=== PATIENT | male | born 1945 | race Caucasian/White ===

== ENCOUNTER 2017-11-04 03:13 | Inpatient (IN) | payer MEDICARE, BC ==
[~2017-11-04 03:13] MED LIST: DOC100 PO; HYDR RC; METO50TA19 PO; OLME1TAB73 PO; SIMV-44 PO; VALS1TAB80 PO; [UNRECOGNIZED DRUG - CODE] RC
--- NOTE | 2017-11-04 03:30 | ER Report ---
History and Physical Time Seen By MD: 03:29 Hx. of Stated Complaint: MID ABDO PAIN SEV HOURS (MICHAEL VILLALOBOS MD) Time Seen By MD: 08:03 (SANDY MURPHY DO) HPI/ROS CHIEF COMPLAINT: epigastric pain HISTORY OF PRESENT ILLNESS: This is a 72 year old male. He has been having some epigastric area pain off and on for several months now. Most of the time it is okay. He has more pain tonight than usual. He has noted that when the pain is present, antacids can sometimes help. He denies anything that makes it worse. He drinks 3 beers a night. He eats a lot of spicy foods, which have never bothered him. No history of known problems such as pancreatitis, gall bladder problems, ulcers. No cough or fever or shortness of breath. No chest pain. Normal bowels and no trouble with urination. No vomiting. (MICHAEL VILLALOBOS MD) HPI/ROS Please see Dr. Villalobos note (SANDY MURPHY DO) Allergies: Coded Allergies: No Known Drug Allergies (Verified , 11/04/17) Home Meds Active Scripts Olmesartan Med/Amlodipine/Hctz (TRIBENZOR 40-10-25 MG TABLET) 1 Each Tablet, 1 EACH PO DAILY, #90 TAB 4 Refills Prov:LATOYA PEREZ APRN-C 04/01/17 Metoprolol Succinate (METOPROLOL SUCCINATE) 50 Mg Tab.er.24h, 1 TAB PO QDAY, # 90 TAB 4 Refills Prov:LATOYA PEREZ APRN-C 04/01/17 Reported Medications Glucosa Leon 2KCL/Chondroitin Leon (GLUCOSAMINE & CHONDROITIN CAP) 1 Each Capsule, 1 EACH PO BID, CAPSULE 11/04/17 Cinnamon Bark (CINNAMON) 500 Mg Capsule, 500 MG PO QDAY, CAPSULE 11/04/17 Past Medical/Surgical History Hypertension, headaches, hemorrhoids, blind right eye, sure injury to right shoulder and right knees, and right eye surgery when he was a child (MICHAEL VILLALOBOS MD) Reviewed Nurses Notes: Yes (MICHAEL VILLALOBOS MD) Hx Smoking: No Smoking Status: Never Smoker Hx Substance Use Disorder: No Hx Alcohol Use: Yes (3 OR SO BEERS PER NIGHT) (MICHAEL VILLALOBOS MD) Constitutional Vital Sign - Last 24 Hours 11/04/17 11/04/17 11/04/17 11/04/17 03:16 03:21 03:28 03:30 Temp 98.0 Pulse 78 ??? Resp 16 B/P (MAP) 132/71 132/71 (91) 128/77 (94) Pulse Ox 93 96 O2 Delivery Room Air 11/04/17 11/04/17 11/04/17 11/04/17 03:43 03:58 04:13 04:28 Pulse ? 77 ??? Pulse Ox 95 92 11/04/17 11/04/17 11/04/17 11/04/17 04:43 04:48 05:03 05:18 Pulse ? 11/04/17 11/04/17 11/04/17 11/04/17 05:21 05:24 05:30 05:33 Pulse ??? B/P (MAP) 139/77 (97) 132/75 (94) 131/73 (92) 11/04/17 11/04/17 11/04/17 11/04/17 05:48 06:00 06:03 06:18 Pulse ? B/P (MAP) 116/64 (81) 11/04/17 11/04/17 11/04/17 11/04/17 06:30 06:33 07:00 07:30 Pulse ??? B/P (MAP) 120/68 (85) 108/71 (83) 114/72 (86) (SANDY MURPHY DO) Physical Exam General Appearance: The patient is alert. No acute distress ENT: Mucous membranes are moist. Respiratory: Lungs are clear to auscultation. Cardiovascular: Regular rate and rhythm. No murmurs, gallops or rubs. Gastrointestinal: Abdomen is soft and has some tenderness in the epigastric area. Nondistended. No rebound or guarding. Normal active bowel sounds. No costovertebral angle tenderness with percussion. Neurological: Alert and oriented x3. Skin: Warm and dry. No rashes. DIFFERENTIAL DIAGNOSIS: After history and physical exam, differential diagnosis was considered for epigastric pain including but not limited to biliary colic, cholecystitis, peptic ulcer disease, pancreatitis, and gastroenteritis. (MICHAEL VILLALOBOS MD) Physical Exam Please see Dr. Villalobos's note (SANDY MURPHY DO) Medical Decision Making Data Points Result Diagram: 11/04/17 0348 11/04/17 0348 Laboratory Hematology Test 11/04/17 03:48 Red Blood Count 4.17 M/uL (4.00-5.60) Mean Corpuscular Volume 92.9 fL (80.0-96.0) Mean Corpuscular Hemoglobin 32.8 pg (26.0-33.0) Mean Corpuscular Hemoglobin Concent 35.3 g/dL (32.0-36.0) Red Cell Distribution Width 13.2 % (11.5-14.5) Mean Platelet Volume 8.4 fL (7.2-11.1) Neutrophils (%) (Auto) 76.1 % (39.4-72.5) Lymphocytes (%) (Auto) 13.1 % (17.6-49.6) Monocytes (%) (Auto) 9.8 % (4.1-12.4) Eosinophils (%) (Auto) 0.7 % (0.4-6.7) Basophils (%) (Auto) 0.3 % (0.3-1.4) Nucleated RBC Relative Count (auto) 0.0 /100WBC Neutrophils # (Auto) 7.6 K/uL (2.0-7.4) Lymphocytes # (Auto) 1.3 K/uL (1.3-3.6) Monocytes # (Auto) 1.0 K/uL (0.3-1.0) Eosinophils # (Auto) 0.1 K/uL (0.0-0.5) Basophils # (Auto) 0.0 K/uL (0.0-0.1) Nucleated RBC Absolute Count (auto) 0.00 K/uL Sodium Level 139 mmol/L (137-145) Potassium Level 3.4 mmol/L (3.5-5.0) Chloride Level 100 mmol/L (98-107) Carbon Dioxide Level 26 mmol/L (22-30) Blood Urea Nitrogen 20 mg/dl (9-21) Creatinine 1.20 mg/dl (0.66-1.25) Glomerular Filtration Rate Calc 59.9 Random Glucose 150 mg/dl (75-110) Calcium Level 9.0 mg/dl (8.4-10.2) Total Bilirubin 0.6 mg/dl (0.2-1.3) Aspartate Amino Transf (AST/SGOT) 363 U/L (0-35) Alanine Aminotransferase (ALT/SGPT) 179 U/L (0-56) Alkaline Phosphatase 165 U/L (0-126) Total Protein 7.4 g/dl (6.3-8.2) Albumin 4.3 g/dl (3.5-5.0) Amylase Level 292 U/L (0-110) Lipase 1806 U/L (23-300) Helicobacter pylori IgG Antibody Positive (NEGATIVE) Chemistry Test 11/04/17 03:48 White Blood Count 10.0 k/uL (4.5-11.0) Red Blood Count 4.17 M/uL (4.00-5.60) Hemoglobin 13.7 g/dL (14.0-18.0) Hematocrit 38.8 % (42.0-52.0) Mean Corpuscular Volume 92.9 fL (80.0-96.0) Mean Corpuscular Hemoglobin 32.8 pg (26.0-33.0) Mean Corpuscular Hemoglobin Concent 35.3 g/dL (32.0-36.0) Red Cell Distribution Width 13.2 % (11.5-14.5) Platelet Count 290 K/uL (150-450) Mean Platelet Volume 8.4 fL (7.2-11.1) Neutrophils (%) (Auto) 76.1 % (39.4-72.5) Lymphocytes (%) (Auto) 13.1 % (17.6-49.6) Monocytes (%) (Auto) 9.8 % (4.1-12.4) Eosinophils (%) (Auto) 0.7 % (0.4-6.7) Basophils (%) (Auto) 0.3 % (0.3-1.4) Nucleated RBC Relative Count (auto) 0.0 /100WBC Neutrophils # (Auto) 7.6 K/uL (2.0-7.4) Lymphocytes # (Auto) 1.3 K/uL (1.3-3.6) Monocytes # (Auto) 1.0 K/uL (0.3-1.0) Eosinophils # (Auto) 0.1 K/uL (0.0-0.5) Basophils # (Auto) 0.0 K/uL (0.0-0.1) Nucleated RBC Absolute Count (auto) 0.00 K/uL Glomerular Filtration Rate Calc 59.9 Calcium Level 9.0 mg/dl (8.4-10.2) Total Bilirubin 0.6 mg/dl (0.2-1.3) Aspartate Amino Transf (AST/SGOT) 363 U/L (0-35) Alanine Aminotransferase (ALT/SGPT) 179 U/L (0-56) Alkaline Phosphatase 165 U/L (0-126) Total Protein 7.4 g/dl (6.3-8.2) Albumin 4.3 g/dl (3.5-5.0) Amylase Level 292 U/L (0-110) Lipase 1806 U/L (23-300) Helicobacter pylori IgG Antibody Positive (NEGATIVE) (SANDY MURPHY DO) ED Course/Re-evaluation Clinical Indication for ER IV: Hydration, IV Access (MICHAEL VILLALOBOS MD) ED Course Patient is a 72-year-old male here with complaints of epigastric abdominal pain for the last several months. I took over care of this patient from Dr. Villalobos who was on apartment maintenance technician. Patient was found to have elevated lipase consistent with pancreatitis though ultrasound and CT findings showed no acute abnormalities from a structural standpoint. Ultrasound and CT showed increased gallbladder wall thickening with edema consistent with acute cholecystitis. I discussed the findings with Dr. Matos who is the general surgeon talent acquisition program manager who accepted the patient to his service. I updated the patient regarding these findings and he voiced understanding. Patient remained hemodynamically stable throughout course. Decision to Disposition Date: Nov 04, 2017 Decision to Disposition Time: 08:05 (SANDY MURPHY DO) Depart Departure Latest Vital Signs Vital Signs Date Time Temp Pulse Resp B/P (MAP) Pulse Ox O2 Delivery O2 Flow Rate FiO2 11/04/17 07:30 114/72 (86) 11/04/17 06:33 ??? 11/04/17 04:28 92 11/04/17 03:16 98.0 16 Room Air (SANDY MURPHY DO) Impression: Primary Impression: Cholecystitis Additional Impression: Gallstone pancreatitis Condition: Condition Unchanged Disposition: Admitted from ER Referrals: LATOYA PEREZ APRN FLIGHT CONTROLS ENGINEER-C (PCP) Problem Qualifiers MICHAEL VILLALOBOS MD Nov 04, 2017 03:30 SANDY MURPHY DO Nov 04, 2017 08:06
[2017-11-04] MEDS ORDERED: MAG HYD/AL HYD/SIMETH 30ML UDC PO ONE (03:40)
[2017-11-04] MEDS ORDERED: LIDOCAINE 2% VISC SLN 15ML UDC PO ONE (03:40)
[2017-11-04] MEDS ORDERED: PANTOPRAZOLE SOD 40 MG IV VIAL IVP ONE (03:40)
[2017-11-04] MEDS ORDERED: ATRO/SCOPOL/HYOSCY/PB 5 ML ELX PO ONE (03:40)
[2017-11-04 04:05] LABS: PLATELET COUNT, AUTOMATED 290 K/uL (150-450)
[2017-11-04] MEDS ORDERED: IOPAMIDOL 76% 75 ML INFUS BTL 75 ML ONE (05:05)
--- NOTE | 2017-11-04 05:41 | RADIOLOGY IMAGING REPORT ---
FACILITY: [facility] PATIENT NAME: Dago Benítez : 1945 MR: [id number] V: [id number] EXAM DATE: ORDERING PHYSICIAN: MICHAEL FOLEY TECHNOLOGIST: Location: [facility] Patient: Dago Benítez : 1945 Visit/Account:[id number] Date of Sevice: 11/04/2017 CT of the abdomen and pelvis with contrast: Indication: Epigastric pain. Technique: Helical CT was performed through the abdomen and pelvis following IV contrast enhancement with 75 cc of Isovue-370. Multiplanar reconstructions are reviewed. One of the following dose optimization techniques was utilized in the performance of this exam: Autom ated exposure control; adjustment of the mA and/or kV according to the patient's size; or use of an i terative reconstruction technique. Specific details can be referenced in the facility's radiology CT exam operational policy. Comparison: None. Lower lung reyna: There are linear parenchymal opacities at both bases, compatible with atelectasis. No parenchymal consolidation or pleural effusion is identified. Liver: Normal in size, shape, and density. There is uniform enhancement of the venous structures. Gallbladder/biliary tree: The gallbladder is distended. There is marked thickening and edema of the g allbladder wall, compatible with acute cholecystitis. No opaque calculi are clearly identified. The bile ducts are normal in caliber. Pancreas: Atrophic, but otherwise unremarkable. There are no signs of peripancreatic inflammation or fluid. Spleen: Normal in size, shape, and density. Adrenal glands: Within normal limits. Kidneys/urinary bladder: The kidneys are normal in size, shape, and density. A few small simple cysts are present. There are no signs of urinary tract calculus or obstruction. The bladder is homogeneous and unremarkable. Intestinal structures: There is moderate diverticulosis in the sigmoid colon. There are no signs of a cute diverticulitis. There is no evidence of obstruction. The appendix appears normal. Pelvis: Unremarkable. Aorta and vascular structures: Within normal limits. Ascites or fluid collections: None seen. Skeletal structures: There are moderate degenerative changes in the spine. No acute skeletal deformit y is identified. Impression: The gallbladder is distended, with marked thickening and edema of the wall, compatible wi th acute cholecystitis. No opaque calculi are identified. The bile ducts are not dilated. The pancreas appears unremarkable. Report Dictated By: Jovani Lester MD at 11/04/2017 5:27 AM Report E-Signed By: Jovani Lester MD at 11/04/2017 5:36 AM WSN:[id number]
--- NOTE | 2017-11-04 06:59 | RADIOLOGY IMAGING REPORT ---
FACILITY: [facility] PATIENT NAME: Dago Benítez : 1945 MR: [id number] V: [id number] EXAM DATE: ORDERING PHYSICIAN: MICHAEL FOLEY TECHNOLOGIST: Location: [facility] [place] Patient: Dago Benítez : 1945 Visit/Account:[id number] Date of Sevice: 11/04/2017 Limited ultrasound of the abdomen: Indication: Right upper quadrant and epigastric pain. Technique: Routine imaging, with Doppler. Comparison: CT scan from earlier the same day. Gallbladder: There is diffuse thickening and edema of the gallbladder wall, compatible with acute cho lecystitis. Multiple small echogenic calculi are present in the lumen. Biliary tree: Normal in caliber. The CBD measures 5 mm. Liver: Normal in size, shape, and echogenicity. The right lobe measures 16.3 cm. The portal vein is p atent with antegrade flow. Pancreas: Unremarkable, as visualized. Spleen: Not evaluated. Kidneys: The right kidney measures 9.8 x 5.9 x 4.8 cm and appears unremarkable. The left kidney was not evaluated. Aorta and IVC: Unremarkable, as visualized. Ascites: None seen. IMPRESSION: Acute cholecystitis, with multiple small calculi in the lumen. No evidence of ductal dila tation. Report Dictated By: Jovani Lester MD at 11/04/2017 6:50 AM Report E-Signed By: Jovani Lester MD at 11/04/2017 6:55 AM WSN:[id number]
[2017-11-04] MEDS ORDERED: ONDANSETRON 4 MG/2 ML VIAL IVP PRN (07:45)
[2017-11-04] MEDS ORDERED: FLUSH 10 ML SYR IVP PRN (07:45)
[2017-11-04] MEDS ORDERED: HYDROmorphone PCA 6 MG/30 ML IV PRN (07:45)
[2017-11-04] MEDS ORDERED: NALOXONE HCL 0.4 MG/ML VIAL IVP PRN (07:45)
[2017-11-04 08:45] VITALS: BP 124/78
[2017-11-04] MEDS ORDERED: HCTHIAZID PO SCH (09:00)
[2017-11-04] MEDS ORDERED: OLMESARTAN PO SCH (09:00)
[2017-11-04] MEDS ORDERED: AMLODIPIN PO SCH (09:00)
[2017-11-04] MEDS ORDERED: METOPROLOL SUCC XL 50 MG TABCR 50 MG TAB.ER.24H PO SCH (09:00)
[2017-11-04] MEDS ORDERED: GLUC-198 PO (09:09)
[2017-11-04] MEDS ORDERED: CINN500C12 PO (09:09)
[2017-11-04] MEDS: NS(*) 0.9% 1000 ML BAG 1,000 ML IV PRN ×2 (09:19→23:36)
[2017-11-04] MEDS: PIPERACILLIN/TAZO*3.375GM VIAL 3.375 GM in NS(*) 0.9% 100 ML ADDVANT BAG 100 ML IVPB SCH ×3 (09:23→20:45)
--- NOTE | 2017-11-04 10:25 | Gen Surgery History & Physical ---
History of Present Illness Chief Complaint Abdominal pain History of Present Illness 72 yo male presents with 1 day of upper abdominal pain. He's had several episodes of similar symptoms over the last 3 months but none have lasted this long. He presented to the ER and was found to have an elevated lipase and evidence of GB wall thickening. No fevers/chills. No jaundice, choleurea, or steatorrhea. I have been consulted and so have admitted the patient for further management. History Problems: (1) Macular degeneration Status: Chronic (2) Benign essential hypertension Status: Chronic (3) Other and unspecified hyperlipidemia Status: Chronic Home Meds Active Scripts Olmesartan Med/Amlodipine/Hctz (TRIBENZOR 40-10-25 MG TABLET) 1 Each Tablet, 1 EACH PO DAILY, #90 TAB 4 Refills Prov:LATOYA PEREZ APRNP-C 04/01/17 Metoprolol Succinate (METOPROLOL SUCCINATE) 50 Mg Tab.er.24h, 1 TAB PO QDAY, # 90 TAB 4 Refills Prov:LATOYA PEREZ APRNP-C 04/01/17 Reported Medications Glucosa Leon 2KCL/Chondroitin Leon (GLUCOSAMINE & CHONDROITIN CAP) 1 Each Capsule, 1 EACH PO BID, CAPSULE 11/04/17 Cinnamon Bark (CINNAMON) 500 Mg Capsule, 500 MG PO QDAY, CAPSULE 11/04/17 Allergies: Coded Allergies: No Known Drug Allergies (Verified , 11/04/17) Review of Systems All Systems Reviewed/Normal: Yes, Except as Noted Gastrointestinal: Abdominal Pain Exam General Appearance: Alert, Awake, No Acute Distress, Afebrile Neuro: No Gross deficits Eyes: PERRLA GI: Other (Soft, RUQ TTP, no Sousa's sign) Extremities: Warm, Perfused Medical Decision Making Data Points Result Diagram: 11/04/17 0348 11/04/17 0348 Assessment and Plan Problems: (1) Cholecystitis Status: Acute Assessment & Plan: 11/04/17: Admit, NPO, IV fluids, IV abx. To OR later today for robotic cholecystectomy. I have explained this condition and its treatment with the patient in detail. I have recommended cholecystectomy to him. I would start robotically/laparoscopically but have explained the risks of needing to convert to an open procedure. I have explained the surgery, alternatives, risks, and expected recovery. He indicates his understanding of this discussion and his questions have been answered. He would like to proceed with this plan including surgery. (2) Gallstone pancreatitis Status: Acute Condition Stable. Time Spent: < 30 min Venous Thromboembolism VTE Risk Physician Assess for VTE Risk: Yes Patient's VTE Risk: Low VTE Diagnostic Test 2 Days Prior to Admit: No Antithrombotics Is Pt On Any Antithrombotics?: No SERGIO YAN MD Nov 04, 2017 10:24
[2017-11-04 11:08] VITALS: BP 107/70
[2017-11-04] MEDS ORDERED: DEXAMETHASONE SOD 4 MG/ML VIAL ONE (11:56)
[2017-11-04] MEDS ORDERED: PROPOFOL EMUL(*) 10MG/ML 20 ML 20 ML ONE (11:56)
[2017-11-04] MEDS ORDERED: SUGAMMADEX SOD 200 MG/2 ML SDV ONE (11:56)
[2017-11-04] MEDS ORDERED: ROCURONIUM BROM 10 MG/ML 10 ML ONE (11:56)
[2017-11-04] MEDS ORDERED: ONDANSETRON 4 MG/2 ML VIAL ONE (11:56)
[2017-11-04] MEDS ORDERED: fentaNYL CITR 250 MCG/5 ML AMP ONE (11:57)
[2017-11-04] MEDS ORDERED: KETAMINE HCL 200 MG/20 ML MDV ONE (12:40)
[2017-11-04 15:21] VITALS: BP 134/82
[2017-11-04] MEDS ORDERED: FAMOTIDINE(*) 20MG/50ML PREMIX 50 ML IVPB ONE (15:25)
[2017-11-04] MEDS ORDERED: NORMOSOL R SOLN(*) 1000 ML BAG 1,000 ML IV ONE (15:35)
[2017-11-04] MEDS ORDERED: ROPIVACAINE 0.5% 20 ML VIAL ONE (16:42)
[2017-11-04] MEDS ORDERED: IOPAMIDOL 61% 75 ML INFUS BTL 75 ML ONE (16:45)
[2017-11-04 19:08] VITALS: BP 123/73
[2017-11-04] MEDS ORDERED: CELLULOSE HEMOSTAT 1 EACH PKT OP-SITE ONE ×2 (21:24→21:25)
[2017-11-04] MEDS: OLMESARTAN PO SCH (21:30)
[2017-11-04] MEDS: HCTHIAZID PO SCH (21:30)
[2017-11-04] MEDS: AMLODIPIN PO SCH (21:30)
[2017-11-04] MEDS: METOPROLOL SUCC XL 50 MG TABCR 50 MG TAB.ER.24H PO SCH (21:30)
--- NOTE | 2017-11-04 22:44 | Post Operative Progress Note ---
Post Operative Progress Note Date: Nov 04, 2017 Time: 22:35 Surgeon: Man Dictation number: [id number] Anesthesia: GETA by Dr. Bronson Pre-Op Diagnosis: Acute Cholecystitis Gallstone Pancreatitis Post-Op Diagnosis: DWAYNE Findings: Dilated CBD and CHD on IOC, no other abnormalities Procedure(s): Robotic cholecystectomy with cholangiogram Specimen Removed:(May be N/A): GB and contents Complications: None Fluids: See anesthesia record Estimated Blood Loss: Minimal Date OP Note Dictated: Nov 04, 2017 Time OP Note Dictated: 22:36 SERGIO YNA MD Nov 04, 2017 22:44
[2017-11-04 23:30] VITALS: BP 128/78
[2017-11-04 23:45] VITALS: BP 125/78
[2017-11-05] VITALS (14 sets, daily range): BP systolic 104–124; BP diastolic 64–77
--- NOTE | 2017-11-05 00:30 | RADIOLOGY IMAGING REPORT ---
[place] [facility] [place]: Dago Benítez : 1945 MR: [id number] V: [id number] EXAM DATE: ORDERING PHYSICIAN: SERGIO YAN TECHNOLOGIST: Location: [facility] Patient: Dago Benítez : 1945 Visit/Account:[id number] Date of Sevice: 11/04/2017 Cholangiogram in OR: Indication: Cholecystitis. Technique: 286 images were submitted. Fluoroscopy time was 43.1 seconds. Comparison: CT and ultrasound from earlier the same day. Findings: Contrast was injected through the cystic duct. There is uniform opacification of the visual ized ductal structures. The flow of contrast into the duodenum appears unrestricted. There may be a s mall choledochocyst near the ampulla. There was reflux of contrast into the pancreatic duct. Refer to the operative report for full details. Impression: No evidence of obstruction or filling defects. Report Dictated By: Jovani Lester MD at 11/05/2017 12:18 AM Report E-Signed By: Jovani Lester MD at 11/05/2017 12:26 AM WSN:[id number]
[2017-11-05] MEDS: PIPERACILLIN/TAZO*3.375GM VIAL 3.375 GM in NS(*) 0.9% 100 ML ADDVANT BAG 100 ML IVPB SCH ×4 (03:05→21:56)
[2017-11-05 05:54] LABS: PLATELET COUNT, AUTOMATED 240 K/uL (150-450)
[2017-11-05] MEDS ORDERED: HYDROmorphone HCL 2 MG/ML SDV IVP PRN (07:50)
--- NOTE | 2017-11-05 07:53 | General Surgery Progress Note ---
Subjective Progress Notes Subjective Feeling pretty good this morning. Pain is fairly minimal. Not passing much flatus. No N/V. No other complaints this morning. Physical Exam Vital Signs Date Time Temp Pulse Resp B/P (MAP) Pulse Ox O2 Delivery O2 Flow Rate FiO2 11/05/17 07:32 98.6 74 14 119/74 (89) 91 Room Air 11/05/17 05:00 0.5 General Appearance: Alert, Awake, No Acute Distress, Afebrile GI: Other (Soft, appropriate postop TTP, dressings C/D/I.) Extremities: Warm, Perfused Result Diagram: 11/05/1733 11/05/1733 Assessment and Plan Problems: (1) Cholecystitis Status: Acute Assessment & Plan: 11/04/17: Admit, NPO, IV fluids, IV abx. To OR later today for robotic cholecystectomy. I have explained this condition and its treatment with the patient in detail. I have recommended cholecystectomy to him. I would start robotically/laparoscopically but have explained the risks of needing to convert to an open procedure. I have explained the surgery, alternatives, risks, and expected recovery. He indicates his understanding of this discussion and his questions have been answered. He would like to proceed with this plan including surgery. 11/05/17: POD#1 s/p robotic cholecystectomy with cholangiogram. Doing much better this morning. Labs look better. Will continue clear diet until bowel function improves given degree of gallbladder inflammation. Ambulate, IS, pulmonary hygiene, PPI, lovenox, etc. (2) Gallstone pancreatitis Status: Acute Condition Stable. Time Spent: < 30 min Exam Sepsis Risk: No Definite Risk SERGIO YAN MD Nov 05, 2017 07:53
--- NOTE | 2017-11-05 08:50 | ULLRICH LAP CHOLE ---
EVENT DATE: November 05, 2017 SURGEON: Aakash Conway MD ANESTHESIOLOGIST: José Miguel Bronson M.D. ANESTHESIA: General Endotracheal PREOPERATIVE DIAGNOSIS 1. Acute cholecystitis. 2. Gallstone pancreatitis. POSTOPERATIVE DIAGNOSIS 1. Acute cholecystitis. 2. Gallstone pancreatitis. PROCEDURE PERFORMED Robotic cholecystectomy with intraoperative cholangiogram. COMPLICATIONS None. CONDITION Stable. ESTIMATED BLOOD LOSS Minimal. FINDINGS The patient's gallbladder was very inflamed. Cholangiogram revealed a dilated common bile duct and common hepatic duct but I did not see any filling defects or evidence of stones in the duct. INDICATIONS This is 72-year-old gentleman who presented to the emergency room with a one day history of right upper quadrant abdominal pain. CT scan was suspicious for acute cholecystitis and clinically pancreatitis based on lipase of 1800. Ultrasound was also suspicious for cholecystitis. Clinically, he had persistent right upper quadrant abdominal pain consistent with cholecystitis. He was admitted and placed on IV antibiotics and consented for robotic cholecystectomy. DESCRIPTION OF PROCEDURE The patient was taken into the operating room and placed supine on the operating table. General endotracheal anesthesia was administered and his abdomen was prepped and draped in a sterile fashion. A time-out was completed and I injected the infraumbilical skin with 1% ropivacaine plain. I made a curvilinear smiley face type incision in the infraumbilical rim and dissected through the dermis and into the subcutaneous fat. I identified the midline fascia, made a vertical incision in the midline fascia. I grasped the fascia with Carey clamps and retracted towards the ceiling. I then bluntly entered the peritoneal cavity with my finger. I placed 2-0 interrupted Vicryl sutures transversely through the vertical defect and inserted a 12 mm Telles robotic port into this wound, secured into place with suture. I insufflated the abdomen to a pressure of 50 mmHg and inserted the robotic camera through the robotic port and under direct visualization placed an 8 mm port in the right mid abdomen and two 8 mm ports in the left side of the abdomen so they all formed a line perpendicular to an arrow pointing to the gallbladder. The patient was placed in reverse Trendelenburg and planed towards his left to remove the viscera away from the right upper quadrant and then the robot was brought in, docked and targeted. The instruments were inserted and then I scrubbed out and went to the console. I grasped the fundus of the gallbladder and retracted towards the patient's right shoulder. There were some adhesions to the liver that I took down to prevent tearing of the liver capsule and subsequent bleeding. I then grabbed the infundibulum of the gallbladder and used hook electrocautery to divide the peritoneum over the infundibulum in both the medial and lateral aspects of the gallbladder. I then used a combination of electrocautery and blunt dissection to clean off the cystic duct and artery. The entire gallbladder and area around the gallbladder was very inflamed and edematous. It seemed that everything that was dissected oozed blood and also edema fluid. Ultimately, I was able with FireFly assistance to identify the cystic duct and confirm I was away from the common bile duct. I then placed a clip at the infundibulum and cystic duct junction. I inserted a cholangiocather into the duct and clipped it into place and then shot a cholangiogram. The cholangiogram revealed I was well away from the common duct system and I inserted contrast flow through the common bile duct into the duodenum. I also observed the pancreatic duct. I observed contrast well into the common hepatic duct up into the intrahepatic biliary system. I did not see any filling defects, although the entire common duct system was dilated. I then removed the catheter and placed two more clips distally on the cystic duct to safely occlude the duct and then divide the duct between the upper two clips towards the infundibulum. I then found the artery posterior to the duct and cleaned this off and this was clipped proximally and distally and divided between clips. I then divided the posterior attachments of the gallbladder, from the gallbladder fossa and then placed the gallbladder in a surgical specimen retrieval bag and removed from the abdomen through the umbilical port site. I irrigated and dried the right upper quadrant and inspected the gallbladder fossa, cystic duct and artery stumps and there was no evidence of bleeding or bile leaks. I then removed all of the robotic instruments, undocked the robot and then desufflated the abdomen and removed all the ports. I closed the midline fascia with running 0 Vicryl suture and tied all three of these down with good reapproximation of the fascial edges. The skin of each port site was closd with 4-0 Monocryl subcuticular suture. The skin was cleaned, dried and steri-strips applied followed by sterile surgical dressings. The patient was awakened and extubated in the operating room and transferred to the recovery room in stable condition, having tolerated the procedure without any apparent problems. . SCOOTERD
[2017-11-05] MEDS: PANTOPRAZOLE SOD 40 MG TABEC PO SCH (08:54)
[2017-11-05] MEDS: NS(*) 0.9% 1000 ML BAG 1,000 ML IV PRN ×2 (08:54→20:37)
[2017-11-05] MEDS: DOCUSATE SODIUM 100 MG CAP PO SCH ×2 (08:54→21:50)
[2017-11-05] MEDS ORDERED: PANTOPRAZOLE SOD 40 MG IV VIAL IVP SCH (09:00)
[2017-11-05] MEDS: ACETAMINOPHEN 325 MG TAB PO PRN ×3 (09:07→21:50)
[2017-11-05] MEDS: HCTHIAZID PO SCH (21:00)
[2017-11-05] MEDS: OLMESARTAN PO SCH (21:00)
[2017-11-05] MEDS: AMLODIPIN PO SCH (21:00)
[2017-11-05] MEDS: METOPROLOL SUCC XL 50 MG TABCR 50 MG TAB.ER.24H PO SCH (21:52)
[2017-11-06] MEDS: PIPERACILLIN/TAZO*3.375GM VIAL 3.375 GM in NS(*) 0.9% 100 ML ADDVANT BAG 100 ML IVPB SCH ×2 (03:27→08:45)
[2017-11-06 03:40] VITALS: BP 112/65
[2017-11-06 07:00] VITALS: BP 116/71
[2017-11-06] MEDS ORDERED: DOCU-202 PO (07:35)
[2017-11-06] MEDS ORDERED: PER PO (07:35)
--- NOTE | 2017-11-06 07:42 | Short(Outpt) Discharge Summary ---
Discharge Summary Reason for Hosp/Final Diag: (1) Cholecystitis Status: Resolved Hospital Course & Plan: 11/04/17: Admit, NPO, IV fluids, IV abx. To OR later today for robotic cholecystectomy. I have explained this condition and its treatment with the patient in detail. I have recommended cholecystectomy to him. I would start robotically/laparoscopically but have explained the risks of needing to convert to an open procedure. I have explained the surgery, alternatives, risks, and expected recovery. He indicates his understanding of this discussion and his questions have been answered. He would like to proceed with this plan including surgery. 11/05/17: POD#1 s/p robotic cholecystectomy with cholangiogram. Doing much better this morning. Labs look better. Will continue clear diet until bowel function improves given degree of gallbladder inflammation. Ambulate, IS, pulmonary hygiene, PPI, lovenox, etc. 11/06/17: POD#2. Doing well. Passing flatus. Will d/c to home this morning if he tolerates breakfast. (2) Gallstone pancreatitis Status: Resolved Departure Discharge to: Home, Self Care Discharge Instructions Home Meds Active Scripts Oxycodone/Acetaminophen (OXYCODONE/ACETAMINOPHEN 5MG/325 MG) 5 Mg/325 Mg Tab, 1 TAB PO Q6H Y for PAIN, #10 TAB 0 Refills Prov:AAKASH YAN MD 11/06/17 Docusate Sodium (DOCUSATE SODIUM) 100 Mg Capsule, 1 CAP PO BID, #30 CAPSULE 0 Refills Prov:AAKASH YAN MD 11/06/17 Olmesartan Med/Amlodipine/Hctz (TRIBENZOR 40-10-25 MG TABLET) 1 Each Tablet, 1 EACH PO DAILY, #90 TAB 4 Refills Prov:LATOYA PEREZ APRN-C 04/01/17 Metoprolol Succinate (METOPROLOL SUCCINATE) 50 Mg Tab.er.24h, 1 TAB PO QDAY, # 90 TAB 4 Refills Prov:LATOYA PEREZ APRN-C 04/01/17 Reported Medications Glucosa Leon 2KCL/Chondroitin Leon (GLUCOSAMINE & CHONDROITIN CAP) 1 Each Capsule, 1 EACH PO BID, CAPSULE 11/04/17 Cinnamon Bark (CINNAMON) 500 Mg Capsule, 500 MG PO QDAY, CAPSULE 8/16/18 Follow up Referrals: General Surgery - 11/19/17 @ Surgery, General with Aakash Yan Md You have a follow up appointment scheduled with Dr. Yan on 11/19/17, at 10:00am. Diet: Regular Activity: As Tolerated Special Instructions: You may leave your incisions open to air but leave the steristrips in place until they fall off on their own. You may shower as desired but do not immerse the incisions for 2 weeks. AAKASH YAN MD Nov 06, 2017 07:42
[2017-11-06] MEDS: PANTOPRAZOLE SOD 40 MG TABEC PO SCH (08:45)
[2017-11-06] MEDS: DOCUSATE SODIUM 100 MG CAP PO SCH (08:45)
== END 2017-11-06 12:10 | disposition home or self-care (01) | DRG 417 ==
LOC: ER 03:39 → UNDOADMIN 08:19 → MED 08:19
PROVIDERS: ADMIT Surgery; ATTEND Surgery
PROC: 0FT44ZZ Resection of Gallbladder, Percutaneous Endoscopic Approach (ICD-10-PCS; principal; 2017-11-05)
PROC: 8E0W4CZ Robotic Assisted Procedure of Trunk Region, Percutaneous Endoscopic Approach (ICD-10-PCS; 2017-11-05)
PROC: BF14YZZ Fluoroscopy of Gallbladder, Bile Ducts and Pancreatic Ducts using Other Contrast (ICD-10-PCS; 2017-11-05)
DX: K81.0 Acute cholecystitis (principal); K85.10 Biliary acute pancreatitis without necrosis or infection; I10 Essential (primary) hypertension; H54.61 Unqualified visual loss, right eye, normal vision left eye; E78.5 Hyperlipidemia, unspecified; H35.30 Unspecified macular degeneration
CPT/HCPCS: 36415; 74177; 74300; 76705; 82040; 82150; 82247; 82248; 82310; 82374; 82435; 82565; 82947; 83690; 84075; 84132; 84155; 84295; 84450; 84460; 84520; 85025; 86677; 88304; 96374; 99284; C9113; J1100; J2405; J2543; J2704; J2795; J3010; J3490; J7030; J7050; Q9967

== ENCOUNTER → 2018-03-28 | Outpatient (CLI) | payer BC, MEDICARE ==
[~2018-03-28] MED LIST changes: +ATOR40TA69 PO; +CINN500C12 PO; +DOCU-202 PO; +GLUC-198 PO; +PER PO
[2018-03-28 11:17] LABS: PLATELET COUNT, AUTOMATED 229 K/uL (150-450)
== END ==
LOC: LAB 10:57
PROVIDERS: ATTEND Nurse Practitioner Family
DX: I10 Essential (primary) hypertension (principal)
CPT/HCPCS: 36415; 82040; 82247; 82310; 82374; 82435; 82465; 82565; 82947; 83718; 84075; 84132; 84153; 84155; 84295; 84443; 84450; 84460; 84478; 84520; 85025